=== PATIENT | male | born 1960 ===

== ENCOUNTER 2024-07-20 22:49 | Emergency (ER) | payer OTHER ==
[2024-07-20] MEDS: Doxycycline 100 MG Cap PO ONE (23:35)
== END 2024-07-20 23:37 | disposition home or self-care (01) ==
LOC: MW.ED 22:49
DX: L02.511 Cutaneous abscess of right hand (principal); E11.9 Type 2 diabetes mellitus without complications; Z79.84 Long term (current) use of oral hypoglycemic drugs; Z75.8 Other problems related to medical facilities and other health care
CPT/HCPCS: 99282; A9270; 99283